=== PATIENT | male | born 1960 | race African-American/Black ===

== ENCOUNTER 2023-07-18 12:12 | Emergency (ER) | payer SELFPAY ==
[2023-07-18] MEDS ORDERED: Calcium Chloride 1 GM/10 ML Abboject SYRINGE ONE (12:16)
[2023-07-18] MEDS ORDERED: Sodium Bicarb 50 MEQ/50 ML Abboject 8.4% SYRINGE ONE (12:16)
[2023-07-18] MEDS ORDERED: Vasopressin 20 UNITS/ML VIAL ONE (12:16)
[2023-07-18] MEDS ORDERED: Amiodarone 150 MG/3 ML VIAL ONE (12:16)
[2023-07-18] MEDS ORDERED: EPINEPHrine 1 MG/10 ML Abboject SYRINGE ONE (12:16)
[2023-07-18] MEDS ORDERED: Insulin Regular, Human 100 UNIT/ML 10 ML VIAL ONE (12:19)
[2023-07-18] MEDS ORDERED: Tenecteplase 50 MG ONE (12:25)
[2023-07-18 12:47] LABS: Hematocrit 41.5 % (42.0-52.0); Hemoglobin 13.4 g/dL (14.0-18.0); Mean Corpuscular HGB CONC 32.3 g/dL (32.0-36.0); Mean Corpuscular Hemoglobin 29.7 pg (27.0-31.0); Mean Platelet Volume 10.9 fL (7.4-10.4); Platelet Count 102 10x3/uL (130-400); RBC Distribution Width 12.6 % (11.5-14.5); Red Blood Cell (RBC) Count 4.51 mill/uL (4.70-6.10)
[2023-07-18 12:59] LABS: INR-International Normal Ratio 1.3; PTT 48.2 sec (22.9-36.1); Prothrombin Time 16.3 sec (12.0-14.7)
[2023-07-18 13:04] LABS: Acetaminophen Less than 10 mcg/mL (10.0-30.0); Alcohol Less than 10.0 mg/dL (Less than 10); Salicylate Less than 8.0 mg/dL (15.0-30.0)
[2023-07-18 13:08] LABS: ALT (SGPT) 879 U/L (8-55); AST (SGOT) 578 U/L (5-34); Albumin 2.2 g/dL (3.5-5.0); Alkaline Phosphatase 61 U/L (40-110); Anion Gap 22 mmol/L (10-20); BUN (Urea Nitrogen) 21 mg/dL (8.4-25.7); Bilirubin, Total 0.3 mg/dL (0.2-1.2); Calc. Creatinine Clearance 0 mL/min (70-130); Calcium 9.5 mg/dL (7.8-10.44); Carbon Dioxide 18 mmol/L (22-29); Chloride 105 mmol/L (98-107); Estimated GFR 46; Globulin 2.1 g/dL (2.4-3.5); Glucose 569 mg/dL (70-105); Potassium 3.4 mmol/L (3.5-5.1); Protein, Total 4.3 g/dL (6.0-8.3); Sodium 142 mmol/L (136-145)
[2023-07-18 13:13] LABS: Eosinophils 2 % (0-10); Lymphocytes 84 % (21-51); Monocytes 4 % (0-10); Neutrophil 9 % (42-75); Platelet Adequacy Comment Platelets Decreased
[2023-07-18 13:31] LABS: Troponin I Less than 0.010 ng/mL (< 0.028)
== END 2023-07-18 12:30 | disposition expired ==
LOC: ERS 12:12
DX: I46.9 Cardiac arrest, cause unspecified (principal); R06.03 Acute respiratory distress
CPT/HCPCS: 31500; 36416; 36556; 80053; 80307; 83880; 84484; 85025; 85610; 85730; 92950; J0171; J0282; J1815; J3101